=== PATIENT | female | born 1985 | race Caucasian/White ===

== ENCOUNTER 2017-06-18 05:20 | Day surgery (SDC) | payer OTHER ==
[~2017-06-18 05:20] MED LIST: GLIPIZIDE10 MG PO; METFORMIN HCL1000 M1 PO; SYNTHROID125 MCG PO
[2017-06-18] MEDS ORDERED: KETO10TA2 PO (08:47)
== END 2017-06-18 13:00 | disposition home or self-care (01) ==
LOC: CIR.AMB 05:20
DX: N84.0 Polyp of corpus uteri (principal)